=== PATIENT | female | born 2000 | race African-American/Black ===

== ENCOUNTER 2022-10-23 20:24 | Emergency (ER) | payer OTHER ==
[~2022-10-23] VITALS: Ht 149.9 cm; Wt 63.5 kg
[2022-10-23] MEDS ORDERED: LORAZEPAM 0.5MG TABLET PO ONE (22:15)
[2022-10-23 22:30] LABS: BASOPHILS % 0.4 % (0.0-2.0); CLARITY URINE CLEAR (CLEAR); COLOR URINE YELLOW (YELLOW); EOSINOPHILS % 0.5 % (0.0-5.0); HEMATOCRIT. 37.7 % (36.0-48.0); KETONES URINE NEGATIVE (NEGATIVE); LEUKOCYTE ESTERASE URINE TRACE (NEGATIVE); LYMPHOCYTES % 33.6 % (20.0-50.0); MEAN CORPUSCULAR HEMOGLOBIN 27.3 pg (28.0-32.0); MEAN CORPUSCULAR VOLUME 85.9 fL (81.0-99.0); MEAN PLATELET VOLUME 10.5 fl (7.4-10.4); MONOCYTES % 6.4 % (2.0-8.0); NEUTROPHILS % 59.1 % (40.0-76.0); NITRITE URINE NEGATIVE (NEGATIVE); OCCULT BLOOD URINE NEGATIVE (NEGATIVE); PH URINE 6.5 (4.5-8.0); PLATELET 317 x1000/uL (130-400); PROTEIN URINE NEGATIVE (NEGATIVE); RED BLOOD CELL COUNT 4.39 mill/uL (4.2-5.4); RED CELL DISTRIBUTION WIDTH 13.8 % (11.6-14.6)
[2022-10-23 22:35] LABS: CHLORIDE 110 mEq/L (98-107)
[2022-10-23 22:42] LABS: *AMPHETAMINES SCREEN URINE NEGATIVE (NEGATIVE); *BARBITURATES SCREEN URINE NEGATIVE (NEGATIVE); *BENZODIAZEPINES SCREEN URINE NEGATIVE (NEGATIVE); *COCAINE SCREEN URINE NEGATIVE (NEGATIVE); ETHANOL BLOOD < 10 mg/dL (-10); METHADONE URINE SCREEN NEGATIVE (NEGATIVE); OPIATES URINE SCREEN NEGATIVE (NEGATIVE); PHENCYCLIDINE URINE SCREEN NEGATIVE (NEGATIVE)
[2022-10-23 22:43] LABS: CANNABINOID URINE SCREEN PRESUMTIVE POSITIVE (NEGATIVE)
[2022-10-23 22:56] LABS: HCG SCREEN NEGATIVE
[2022-10-24] MEDS ORDERED: LORAZEPAM 2MG/ML CPJ IM STA ×2 (08:17→12:16)
[2022-10-24] MEDS ORDERED: OLANZAPINE 10 MG/VIAL IM ONE (08:30)
[2022-10-24] MEDS: LORAZEPAM 2MG/ML CPJ IM NR ×2 (13:57→13:58)
[2022-10-25 10:45] VITALS: O2SAT 100
[2022-10-25] MEDS ORDERED: LORAZEPAM 2MG/ML CPJ IM STA ×2 (10:47→11:21)
[2022-10-25] MEDS ORDERED: OLANZAPINE 10 MG/VIAL IM ONE (11:00)
[2022-10-25] MEDS ORDERED: TRAZODONE HCL 50MG TABLET PO ONE (22:45)
[2022-10-26] MEDS ORDERED: IBUPROFEN 800MG TABLET PO ONE (02:45)
[2022-10-26] MEDS ORDERED: POLYETHYLENE GLYCOL 3350 (17GM) 1 DOSE PACK PO ONE (02:45)
[2022-10-26] MEDS ORDERED: DIPHENHYDRAMINE 50MG CAPSULE PO ONE (04:00)
[2022-10-26] MEDS ORDERED: DIPHENHYDRAMINE 25MG CAPSULE PO NR (04:15)
[2022-10-26] MEDS ORDERED: OLANZAPINE 10MG TABLET PO SCH (11:30)
[2022-10-26] MEDS: OLANZAPINE 5MG TABLET ODT PO SCH (14:32)
[2022-10-26] MEDS ORDERED: TRAZODONE HCL 50MG TABLET PO SCH (21:15)
[2022-10-27 08:36] VITALS: BP 110/70; PULSE 97; RESP 16; TEMP 97.5
[2022-10-27] MEDS: OLANZAPINE 5MG TABLET ODT PO SCH (09:00)
== END 2022-10-27 11:28 | disposition home or self-care (01) ==
LOC: ER 22:24
DX: R45.851 Suicidal ideations (principal); F41.9 Anxiety disorder, unspecified; F32.9 Major depressive disorder, single episode, unspecified; Z88.2 Allergy status to sulfonamides; Z20.822 Contact with and (suspected) exposure to COVID-19
CPT/HCPCS: 80053; 80305; 81003; 81025; 80307; 80329; 80320; 84703; 85025; 36415; 99285; 87426; 96372; C9803; J3490; J2060; Q0163; Z7610; G0480